=== PATIENT | female | born 1955 | race Caucasian/White ===

== ENCOUNTER 2016-11-20 07:55 | Day surgery (SDC) | payer BC ==
[2016-11-20] MEDS ORDERED: *PACU ONLY* KETAMINE HCL 10 MG/ML (20ML) VIAL IV ONE (14:00)
[2016-11-20] MEDS ORDERED: LIDOCAINE 2% MDV (20MG/ML) 20ML VIAL IV ONE (14:00)
[2016-11-20] MEDS ORDERED: FENTANYL PF 100MCG/2ML VIAL IV ONE (14:00)
[2016-11-20] MEDS ORDERED: PROPOFOL 10 MG/ML VIAL IV ONE (14:00)
--- NOTE | 2016-11-24 07:10 | Operative Note ---
DATE OF SURGERY: OPERATION: ESOPHAGOGASTRODUODENOSCOPY with biopsy and hot snare polypectomy. PREOPERATIVE DIAGNOSIS: Dysphagia. POSTOPERATIVE DIAGNOSES: 1. Irregular Z line. 2. Multiple large gastric polyps, one removed. PROCEDURE: After informed consent was obtained from the patient, she was placed in the left lateral decubitus position in the endoscopy suite, sedated and monitored by the department of anesthesia. A well-lubricated [id number] gastroscope was placed in the posterior oropharynx and under direct visualization passed to the proximal esophagus. The endoscope was advanced through the proximal, mid, and distal esophagus. The GE junction/Z line was irregular. The remainder of the esophagus appeared normal. No strictures, varices, or mass lesions were seen. The gastric body demonstrated normal distensibility. In the midbody near the greater curve there were noted to be multiple large polyps. One in particular was hemorrhagic and pedunculated. The antrum, pylorus, duodenal bulb, and sweep were unremarkable. J-turn views of the proximal stomach were unremarkable. The endoscope was straightened. The pedunculated friable polyp was subsequently removed. Prior to removal, a hemoclip was applied to the stalk. Once the hemoclip had been deployed, a polypectomy snare was placed around the polyp just distal to the clip and with ERBE Endocut current, the polypectomy was performed. There was no bleeding at the site. The polyp was retrieved. The site demonstrated no bleeding. The clip remained in place on the stalk. The GE junction was biopsied multiple times for histology. The endoscope was removed from the patient. RECOMMENDATIONS: I would suggest the patient increase her proton pump inhibitor/omeprazole to twice per day. I will repeat her upper endoscopy in 6-8 weeks to remove the other polyps. Given the complexity of this case, I believe this should be done up in [place]. In the meantime, we will await the results of tissue histology and her progress on a twice per day PPI. As always, thank you for allowing me to participate in the healthcare of your patients. Mau Torres DO CC: DNUG RO MD, FACP [facility]
== END 2016-11-20 10:16 | disposition home or self-care (01) ==
LOC: HOP 07:55
PROVIDERS: ATTEND Internal Medicine Gastroenterology
DX: D13.2 Benign neoplasm of duodenum (principal); I10 Essential (primary) hypertension; E03.9 Hypothyroidism, unspecified
CPT/HCPCS: 43251; 00740; J3010

== ENCOUNTER 2018-04-30 07:23 | Day surgery (SDC) | payer BC ==
[2018-04-30] MEDS ORDERED: LIDOCAINE 2% MDV (20MG/ML) 20ML VIAL IV ONE (07:24)
[2018-04-30] MEDS ORDERED: PROPOFOL 10 MG/ML VIAL IV ONE (07:24)
--- NOTE | 2018-05-03 12:40 | Operative Note ---
DATE OF SURGERY: 04/30/2018 SURGEON: Henry Calderon MD OPERATION: COLONOSCOPY. INDICATIONS: This is a 62-year-old female with history of colon polyps who presented for surveillance colonoscopy. POSTOPERATIVE DIAGNOSES: 1. A 1 cm sessile polyp in the ascending colon that was removed by cold snare. 2. Otherwise normal colon. ANESTHESIA: Sedation is per Anesthesia. Pulse oximetry was monitored throughout the procedure to maintain O2 saturation of 90% or greater. Supplemental oxygen was administered via nasal cannula. Cardiac and vital signs were monitored throughout the duration of the procedure, and they were stable. The procedure of colonoscopy and risks and alternatives of the procedure, including the risk of bleeding and perforation, among others, were explained to the patient who voiced understanding and agreed to have the procedure done. Physical examination was performed, and the patient was found stable for sedation. PROCEDURE: The patient was placed in the left lateral position. Sedation was initiated. A digital rectal exam was performed and showed some mild external hemorrhoids with no palpable rectal masses. An Olympus PCF-180AL colonoscope was then inserted into the rectum under direct visualization. It was advanced to the cecum without difficulty. The ileocecal valve and appendiceal orifice were identified and photographed. The colonic mucosa was carefully examined upon introduction of the colonoscope. There were no lesions noted. Upon withdrawal of the colonoscope, a 1 cm sessile polyp was noted in the ascending colon that was removed by cold snare. There were no other lesions noted. The colonoscope was then withdrawn into the rectum and retroflexion was performed. Grade 1 internal hemorrhoids were noted. The terminal ileal mucosa was inspected for 10 cm and it was normal. The colonoscope was then withdrawn and the procedure was terminated. The patient tolerated the procedure well without any immediate complications. The patient remained with stable vital signs and was transferred to the recovery room. RECOMMENDATIONS: 1. The patient should be on a high-fiber diet. 2. The patient is to have a repeat colonoscopy for surveillance in 3 years. Thank you for allowing me to participate in the care of your patient. CC: DUNG RO MD, FACP [facility]
== END 2018-04-30 09:30 | disposition home or self-care (01) ==
LOC: HOP 07:23
PROVIDERS: ATTEND Internal Medicine Gastroenterology
DX: Z12.11 Encounter for screening for malignant neoplasm of colon (principal); Z86.010 Personal history of colon polyps; D12.2 Benign neoplasm of ascending colon; I10 Essential (primary) hypertension; E78.00 Pure hypercholesterolemia, unspecified